=== PATIENT | female | born 1985 | race Caucasian/White ===

== ENCOUNTER 2021-07-14 03:10 | Emergency (ER) | payer OTHER ==
[~2021-07-14] VITALS: Ht 165.1 cm; Wt 84.1 kg
[2021-07-14] MEDS ORDERED: ONDANSETRON 4 MG ORAL DISINTEGRATING TAB PO ONE (04:35)
--- NOTE | 2021-07-14 05:33 | REPVR ---
PROCEDURE INFORMATION: Exam: CT Head without Contrast Exam date and time: 07/14/21 (5:04am) Age: 36 years old Clinical indication: Fall. Concussion / head injury. TECHNIQUE: Imaging protocol: Computed tomography of the head without contrast. Radiation optimization: All CT scans at this facility use at least one of these dose optimization techniques: automated exposure control; mA and/or kV adjustment per patient size (includes targeted exams where dose is matched to clinical indication); or iterative reconstruction. COMPARISON: No relevant prior studies available FINDINGS: Brain: Unremarkable. No acute hemorrhage. Unremarkable white matter. No mass effect. Cerebral ventricles: No ventriculomegaly. Paranasal sinuses: No air-fluid levels. Polyp or cyst at the floor of the right maxillary sinus. Mastoid air cells: Visualized mastoid air cells are well aerated. Bones/joints: Unremarkable. No acute fracture. Soft tissues: Unremarkable. IMPRESSION: No acute intracranial pathology. Electronically signed by: Shivani Matthew On 07/14/2021 05:33:09 AM
--- NOTE | 2021-07-14 05:34 | REPVR ---
PROCEDURE INFORMATION: Exam: XR Right Shoulder Exam date and time: 07/14/2021 5:10 AM Age: 36 years old Clinical indication: Pain; Shoulder; Right; Additional info: Trauma/fall TECHNIQUE: Imaging protocol: XR Right shoulder. Views: 2 or more views. COMPARISON: No relevant prior studies available. FINDINGS: Bones/joints: Widened acromioclavicular joint concerning for separation. Soft tissues: Normal. IMPRESSION: Widened acromioclavicular joint concerning for separation. Electronically signed by: Han Helm On 07/14/2021 05:34:43 AM
--- NOTE | 2021-07-14 05:43 | REPVR ---
PROCEDURE INFORMATION: Exam: CT Cervical Spine without Contrast Exam date and time: 07/14/21 (5:04am) Age: 36 years old Clinical indication: Fall. Neck pain. TECHNIQUE: Imaging protocol: Computed tomography images of the cervical spine without contrast Radiation optimization: All CT scans at this facility use at least one of these dose optimization techniques: automated exposure control; mA and/or kV adjustment per patient size (includes targeted exams where dose is matched to clinical indication); or iterative reconstruction. COMPARISON: No relevant prior studies available FINDINGS: Vertebrae: No acute fracture. Satisfactory alignment. Discs/Spinal canal: No significant spinal canal stenosis. Soft tissues: Unremarkable. Lungs: Lung apices are normal. Visualized sinuses: Polyp or cyst at the floor of the right maxillary sinus. IMPRESSION: No acute findings. Electronically signed by: Shivani Matthew On 07/14/2021 05:42:55 AM
[2021-07-14] MEDS ORDERED: KETOROLAC 30 MG/ML 1ML VIAL IV ONE (06:15)
[2021-07-14] MEDS ORDERED: ISOVUE-370 76% 100ML VIAL As Ordered ONE (06:47)
--- NOTE | 2021-07-14 07:43 | REPVR ---
PROCEDURE INFORMATION: Exam: CT Chest With Contrast; Diagnostic Exam date and time: 07/14/2021 6:14 AM Age: 36 years old Clinical indication: Pain; Right-sided; Additional info: Fall down stairs, right back/flank pain TECHNIQUE: Imaging protocol: Diagnostic computed tomography of the chest with contrast. Radiation optimization: All CT scans at this facility use at least one of these dose optimization techniques: automated exposure control; mA and/or kV adjustment per patient size (includes targeted exams where dose is matched to clinical indication); or iterative reconstruction. Contrast material: ISO; Contrast volume: 100 ml; Contrast route: INTRAVENOUS (IV); COMPARISON: CT Spine,cervical w/o contrast 07/14/2021 5:03 AM FINDINGS: Lungs: Mild bilateral dependent atelectasis. Pleural spaces: Unremarkable. No pneumothorax. No pleural effusion. Heart: Unremarkable. No cardiomegaly. No pericardial effusion. Aorta: Unremarkable. No aortic aneurysm. Lymph nodes: Unremarkable. No enlarged lymph nodes. Bones/joints: Multilevel degenerative disease the thoracic spine. Acute nondisplaced fracture of the right T4 and T5 transverse processes extending to the costovertebral junction. Acute hairline fracture of the right posterior 6th rib extending to the costovertebral junction. Soft tissues: Unremarkable. IMPRESSION: Acute nondisplaced fracture of the right T4 and T5 transverse processes extending to the costovertebral junction. Acute hairline fracture of the right posterior 6th rib extending to the costovertebral junction. No pneumothorax. Electronically signed by: Han Helm On 07/14/2021 07:43:00 AM
--- NOTE | 2021-07-14 07:46 | REPVR ---
PROCEDURE INFORMATION: Exam: CT Abdomen And Pelvis With Contrast Exam date and time: 07/14/2021 6:14 AM Age: 36 years old Clinical indication: Abdominal pain; Flank; Right; Additional info: Fall down stairs, right back/flank pain TECHNIQUE: Imaging protocol: Computed tomography of the abdomen and pelvis with contrast. Radiation optimization: All CT scans at this facility use at least one of these dose optimization techniques: automated exposure control; mA and/or kV adjustment per patient size (includes targeted exams where dose is matched to clinical indication); or iterative reconstruction. Contrast material: ISO; Contrast volume: 100 ml; Contrast route: INTRAVENOUS (IV); COMPARISON: No relevant prior studies available. FINDINGS: Liver: Mild hepatomegaly and steatosis. Gallbladder and bile ducts: Normal. No calcified stones. No ductal dilation. Pancreas: Normal. No ductal dilation. Spleen: Normal. No splenomegaly. Adrenal glands: Normal. No mass. Kidneys and ureters: Normal. No hydronephrosis. Stomach and bowel: Unremarkable. No obstruction. No mucosal thickening. Appendix: No evidence of appendicitis. Intraperitoneal space: Unremarkable. No free air. No significant fluid collection. Vasculature: Unremarkable. No abdominal aortic aneurysm. Lymph nodes: Multiple borderline enlarged mesenteric lymph nodes. Urinary bladder: Distended urinary bladder. Reproductive: Mildly enlarged left adnexa can be further assessed with pelvic ultrasound if clinically indicated. Bones/joints: Mild multilevel degenerative disease and facet arthropathy. Mild scoliosis. Soft tissues: Mild diastasis of ventral abdominal wall. IMPRESSION: No acute fractures or evidence of solid organ injury. Mildly enlarged left adnexa can be further assessed with pelvic ultrasound if clinically indicated. Mild hepatomegaly and steatosis. Electronically signed by: Han Helm On 07/14/2021 07:46:14 AM
[2021-07-14] MEDS ORDERED: IBUP-1022 PO (08:12)
[2021-07-14 08:30] VITALS: BP 122/69
--- NOTE | 2021-07-15 10:56 | ED PDOC ---
Post-Departure Follow-Up certified letter sent regarding radiology results Ling Aparicio MD Jul 15, 2021 10:56
== END 2021-07-14 08:46 | disposition home or self-care (01) ==
LOC: M ED 03:10
DX: S22.048A Other fracture of fourth thoracic vertebra, initial encounter for closed fracture (principal); S22.31XA Fracture of one rib, right side, initial encounter for closed fracture; W01.0XXA Fall on same level from slipping, tripping and stumbling without subsequent striking against object, initial encounter; Y92.018 Other place in single-family (private) house as the place of occurrence of the external cause
CPT/HCPCS: 70450; 71260; 72125; 73030; 74177; 80047; 84702; 96374; 99284; J1885; Q0162; Q9967

== ENCOUNTER → 2023-03-01 | Outpatient (CLI) | payer OTHER ==
[~2023-03-01] MED LIST: IBUP-1022 PO
== END ==
LOC: M WHC 14:29
PROVIDERS: ATTEND Student in an Organized Health Care Education/Training Program
DX: N92.0 Excessive and frequent menstruation with regular cycle (principal)

== ENCOUNTER 2024-10-29 22:01 | Emergency (ER) | payer BC, OTHER ==
[~2024-10-29] VITALS: Ht 162.6 cm; Wt 80.5 kg
[2024-10-29 22:40] LABS: APPEARANCE, URINE HAZY (CLEAR); BACTERIA, URINE AUTO NEGATIVE (NEGATIVE); BILIRUBIN, URINE AUTO NEGATIVE (NEGATIVE); BLOOD, URINE BLOOD 3+ (NEGATIVE); CALCIUM OXALATE CRYSTALS SMALL; COLOR, URINE YELLOW (YELLOW); GLUCOSE, URINE (UA) AUTO NEGATIVE (NEGATIVE); KETONE, URINE AUTO NEGATIVE (NEGATIVE); LEUKOCYTE ESTERASE, URINE AUTO NEGATIVE (NEGATIVE); MUCUS, URINE SMALL (NEGATIVE); NITRITE, URINE AUTO NEGATIVE (NEGATIVE); PROTEIN, URINE AUTO 1+ mg/dL (NEGATIVE); RBC, URINE AUTO TNTC /HPF (0-3); SPECIFIC GRAVITY URINE AUTO 1.026 (1.002-1.035); SQUAMOUS EPITHELIAL CELL UR AU 1 /HPF (0-6); UROBILINOGEN, URINE AUTO 0.2 mg/dL (0.0-2.0); WBC, URINE AUTO 4 /HPF (0-3)
[2024-10-29 22:43] LABS: BASO % 0.4 % (0.0-1.0); EOS # 0.2 10^3/uL (0.0-0.5); EOS % 2.3 % (0.0-3.0); HEMATOCRIT 30.9 % (36.0-47.0); HEMOGLOBIN 9.4 g/dl (12.0-15.5); LYMPH # 2.7 10^3/uL (1.5-5.0); LYMPH % 29.6 % (24.0-44.0); MEAN CORPUSCULAR HEMOGLOBIN 22.7 pg (27.0-33.0); MEAN CORPUSCULAR HGB CONC 30.4 g/dl (32.0-36.5); MEAN CORPUSCULAR VOLUME 74.5 fl (80.0-96.0); MONO # 0.6 10^3/uL (0.0-0.8); NEUTROPHILS # 5.5 10^3/uL (1.5-8.5); NEUTROPHILS % 60.4 % (36.0-66.0); PLATELET COUNT, AUTOMATED 273 10^3/uL (150-450); RED BLOOD COUNT 4.15 10^6/uL (4.00-5.40); WHITE BLOOD COUNT 9.1 10^3/uL (4.0-10.0)
[2024-10-29 23:14] LABS: BLOOD UREA NITROGEN 12 MG/DL (9-23); CALCIUM LEVEL 9.2 MG/DL (8.5-10.1); CARBON DIOXIDE LEVEL 26 MMOL/L (20-31); CHLORIDE LEVEL 107 MMOL/L (98-107); CREATININE FOR GFR 0.62 MG/DL (0.55-1.30); GLOMERULAR FILTRATION RATE > 60.0 (>58); GLUCOSE, FASTING 104 MG/DL (60-100); HCG, SERUM QUANTITATIVE 137.5 MIU/ML (<4.2); POTASSIUM SERUM 4.2 MMOL/L (3.5-5.1); SODIUM LEVEL 140 MMOL/L (136-145)
[2024-10-30 09:55] VITALS: BP 135/71; TEMP 97.4; O2SAT 97
== END 2024-10-30 10:00 | disposition home or self-care (01) ==
LOC: M ED 22:01
DX: N93.9 Abnormal uterine and vaginal bleeding, unspecified (principal); F10.10 Alcohol abuse, uncomplicated